=== PATIENT | male | born 1990 | race Caucasian/White ===

== ENCOUNTER 2020-03-22 19:15 | Emergency (ER) | payer OTHER, SELFPAY ==
[2020-03-22 19:25] VITALS: BP 124/79; PULSE 81; RESP 18; TEMP 36.4; O2SAT 99; BMI 29.1
--- NOTE | 2020-03-22 20:42 | W.ED.COVID ---
HPI - COVID General: Chief Complaint: COVID symptoms Stated Complaint: cant taste/cough Time Seen by Provider: 03/22/20 20:38 Source: patient Mode of arrival: ambulatory Limitations: no limitations Triage information: No fever, cough or shortness of breath. No known COVID + exposure last 14 days History of Present Illness: HPI Narrative: Mr. Nuno is a nice 29-year-old male who comes in stating he has cough, sore throat and loss of sense of smell. Symptoms been present for the past 2 days. He has had a subjective fever but has not measured his temperature. He denies any nausea, vomiting or diarrhea. Patient states he has had a known covert exposure. He otherwise denies any complaints or concerns. He is unaware of anything that makes his symptoms better or worse. COVID 19 common symptoms: positive fever(s), non-productive cough and throat pain; negative chills, productive cough, dyspnea, fatigue, body aches, headache(s), nausea, vomiting or diarrhea COVID 19 other sytmptoms: negative chest pain or confusion COVID Results: No Data to Display Review of Systems Const: Reports: fever(s); Denies: chills, body aches, fatigue, malaise or diaphoresis Eyes: Denies: change in vision, blurry vision, photophobia, eye discomfort, eye discharge, eye redness or yellow eyes ENMT: Reports: throat pain; Denies: odynophagia, hoarseness, swelling of lips/tongue, ear or mastoid pain, ear discharge, change in hearing or nasal discharge Card: Denies: chest pain, palpitations, irregular heart rhythm, edema, lightheadedness, syncope, pre-syncope, dyspnea on exertion or orthopnea Resp: Reports: non-productive cough; Denies: dyspnea, productive cough, wheezing, hemoptysis or chest congestion GI: Denies: abdominal pain, nausea, vomiting, hematemesis, coffee ground emesis, heartburn, diarrhea, constipation, GI cramping, hematochezia or melena : Denies: flank pain, dysuria, urinary frequency, urinary urgency or hematuria Musc: Denies: neck pain, back pain, extremity pain, extremity swelling, joint pain, joint swelling, joint redness, joint warmth or joint stiffness Skin/Breast: Denies: rash, pruritus, erythema, skin pain or skin tenderness Neuro: Denies: headache(s), numbness in extremities, weakness in extremities, sensory changes, lack of coordination, difficulty walking, dizziness, vertigo, confusion, Slurred speech present or seizure-like activity Gabino/Lymph: Denies: easy bruising, easy bleeding, petechiae, purpura or enlarged lymph nodes All/Imm: Denies: urticaria, throat swelling, tongue swelling, facial swelling or acute wheezing Physical Exam Const: COMMON NORMALS: no acute distress, patient oriented x3, no limitations and alert GENERAL APPEARANCE: cooperative HENMT: COMMON NORMALS: normocephalic, atraumatic, external ears normal, EAC's normal and Normal external nose present HEAD & SCALP: normal to inspection, normocephalic and atraumatic FACE & SINUS: normal facial exam and face symmetric NOSE: Normal external nose present and Normal nares present EXTERNAL EAR: Yes external ears normal EXTERNAL AUDITORY CANAL: EAC's normal MOUTH: Normal oral and palatal mucosa present, lip normal and tongue normal Eye: COMMON NORMALS: Equal, round and reactive pupils present and conjunctivae normal GENERAL EYE: appearance normal, both eyes and all related structures ALIGNMENT: Yes alignment normal PERIORBITAL: periorbital findings normal EYELID: eyelids normal CONJUNCTIVA: Yes conjunctivae normal SCLERA: sclerae normal PUPIL: Yes Equal, round and reactive pupils present Neck/C-Spine: COMMON NORMALS: full ROM, no lymphadenopathy, supple, no meningeal signs and no JVD GENERAL: Yes normal visual inspection and Yes trachea midline Chest: COMMONS NORMALS: normal inspection of the chest and normal palpation of entire chest wall Resp: COMMON NORMALS: normal respiratory effort, No retractions, No use of accessory muscles and clear to auscultation bilaterally EFFORT & INSPECTION: Yes able to speak in complete sentences and Yes symmetric chest movement AUSCULTATION: clear to auscultation bilaterally, no crackles, no rales, no rhonchi and no wheezes Cardio: COMMON NORMALS: no JVD, regular rate, regular rhythm, S1 normal heart sound present and S2 normal heart sound present RATE: regular rate RHYTHM: regular rhythm HEART SOUNDS: S1 normal heart sound present, S2 normal heart sound present, no click, no gallops, no murmurs and no rubs GI: COMMON NORMALS: Soft to palpation and No hepatosplenomegaly present PALPATION: Yes Soft to palpation, No Tenderness to palpation present (GI), No Guarding due to palpation present (GI), No Rigid due to palpation, Yes No hepatosplenomegaly present, No Hernia present, No Palpable mass present and No Pulsatile mass present : COMMON NORMALS: Yes no CVA tenderness BLADDER/KIDNEY EXAM: Yes no CVA tenderness Back/Pelvis: COMMON NORMALS: no CVA tenderness, thoracic and lumbar spine normal to inspection, no thoracic nor lumbar tenderness and thoraco-lumbar ROM normal Extremity: COMMON NORMALS: normal to inspection, full ROM, capillary refill normal, no joint enlargement, no clubbing, cyanosis or edema and no calf tenderness Neuro: COMMON NORMALS: patient oriented x3, CN's II-XII intact bilaterally, moves all extremities, no focal motor deficits and no sensory deficits noted SENSORIUM/ORIENTATION: Yes alert MENINGEAL SIGNS: Yes no meningeal signs SPEECH: speech normal Psych: COMMON NORMALS: mental status grossly normal, Normal thought process present, cooperative, normal affect, speech normal and activity/motor behavior normal SPEECH: Yes normal speech THOUGHT PROCESS: Normal thought process present Skin: COMMON NORMALS: no rashes or lesions noted, turgor normal, no jaundice, no petechiae and no mottling GENERAL SKIN EXAM: no rashes or lesions noted and turgor normal Course Vital Signs: Vital signs: Vital Signs Temperature 97.6 F 03/22/20 19:25 Pulse Rate 86 03/22/20 20:57 Respiratory Rate 16 03/22/20 20:57 Blood Pressure 124/79 03/22/20 19:25 Pulse Oximetry 96 03/22/20 20:57 MDM - COVID MDM Narrative Medical decision making narrative: Mr. Nuno is a very nice 29-year-old male who comes in complaining of upper respiratory/COVID-19 type symptoms. Clinically he is stable here with stable vital signs. He is not hypoxic. He does not appear septic. I am going to go ahead and swab the patient and he understands he will need to quarantine himself these results will likely come back in the next 2 to 4 days. He states he can keep himself quarantined until then. At that time he will get further instructions. Lab Data COVID Results: No Data to Display Discharge Plan Discharge Patient Disposition: Home Clinical Impression: Suspected COVID-19 virus infection Upper respiratory infection Qualifiers: URI type: unspecified URI Qualified Code(s): J06.9 - Acute upper respiratory infection, unspecified Condition: Stable Prescriptions: New Decadron 6 mg tablet 6 mg PO DAILY Qty: 10 RF: 0 Tessalon Perles 100 mg capsule 200 mg PO TID PRN (Reason: cough) Qty: 60 RF: 0 Discharge Orders: Discharge Order (Routine); Ordered 03/22/20 Ordered By: Brianda Coker Referrals: Sami Larson MD [Physician] - Discharge Diet: Advance as tolerated Discharge Activity: Increase activity as tolerated Patient Instructions: Viral Syndrome (ED) Activity Restrictions/Additional Instructions: Please return to the ER immediately for any of the signs or symptoms listed on your discharge instruction sheets, worsening/changing of your symptoms, you are not getting better as quickly as expected, or for ANY other cause or concerns. Keep yourself at home, quarantined and away from others until you were contacted with results of your test. At that time you will be given further instructions. Discharge Date/Time: 03/22/20 20:58 Coding Level of Care Code ED Agricultural Equipment Test Engineer for Donna Davis
[2020-03-22] MEDS: dexamethasone 4 mg Tablet 10 MG PO (20:50)
[2020-03-22 20:56] VITALS: O2SAT 96
[2020-03-22 20:57] VITALS: PULSE 86; RESP 16; O2SAT 96
[2020-03-24 10:59] LABS: Quest SARS-CoV-2 RNA NOT DETECTED (NOT DETECTED)
--- NOTE | 2020-03-24 16:12 | PC.NURSE ---
Patient notified of COVID-19 results at this time
== END 2020-03-22 20:58 | disposition home or self-care (01) ==
PROVIDERS: Emergency Provider Emergency Medicine
DX: J06.9 Acute upper respiratory infection, unspecified (principal); Z20.828 Contact with and (suspected) exposure to other viral communicable diseases
CPT/HCPCS: 12345; 87635; 99283; J8540

== ENCOUNTER 2020-04-30 14:22 | Emergency (ER) | payer SELFPAY ==
[2020-04-30 14:26] VITALS: BP 124/75; PULSE 73; RESP 18; TEMP 36.9; O2SAT 98; BMI 28.3
--- NOTE | 2020-04-30 14:35 | XR_ITS ---
WS: [id number] CHEST 2 VIEWS HISTORY: RIGHT lower rib pain. COMPARISON: None available. Lungs: Clear with no abnormality. No pleural effusion or pneumothorax. Cardiac size: Normal. Mediastinum/Aorta: Normal mediastinum. Bones: Normal. XR/XR chest 2V* [id number] IMPRESSION: Normal chest.
--- NOTE | 2020-04-30 14:50 | W.ED.CHESTPA ---
HPI - Chest Pain General: Chief Complaint: Chest Pain Stated Complaint: chest/right ABD pain Time Seen by Provider: 04/30/20 14:38 Source: patient Mode of arrival: ambulatory Limitations: no limitations History of Present Illness: HPI narrative: 29-year-old male states he was binging roughly 160 pounds yesterday and dropped a weight on himself. States he had right-sided chest pain since then. States pain is a sharp in nature and worse with deep breaths and palpation. He denies any shortness of breath. Denies any fever. He is in no distress here. Associated symptoms: Deny abdominal pain, dyspnea, fever(s), nausea or vomiting Review of Systems Const: Denies: fever(s), chills, body aches or change in appetite Eyes: Denies: blurry vision or eye discomfort ENMT: Denies: throat pain or dental pain Card: Reports: chest pain Resp: Denies: dyspnea GI: Denies: abdominal pain, nausea, vomiting or diarrhea : Denies: dysuria Musc: Denies: neck pain or back pain Skin/Breast: Denies: rash Neuro: Denies: headache(s) Psych: Denies: depression Gabino/Lymph: Denies: easy bruising All/Imm: Denies: urticaria Physical Exam Const: COMMON NORMALS: no acute distress, patient oriented x3 and healthy appearing HENMT: COMMON NORMALS: normocephalic and atraumatic HEAD & SCALP: normocephalic and atraumatic Eye: COMMON NORMALS: Equal, round and reactive pupils present and EOMs intact bilaterally PUPIL: Yes Equal, round and reactive pupils present Neck/C-Spine: COMMON NORMALS: full ROM and supple Chest: COMMONS NORMALS: normal inspection of the chest OTHER: Point tender over right chest Resp: COMMON NORMALS: normal respiratory effort, No retractions, No use of accessory muscles and clear to auscultation bilaterally AUSCULTATION: clear to auscultation bilaterally Cardio: COMMON NORMALS: regular rate, regular rhythm and No murmurs present (Cardio) RATE: regular rate RHYTHM: regular rhythm GI: COMMON NORMALS: Normal to inspection, nondistended, normoactive bowel sounds present, Soft to palpation, non-tender and no masses PALPATION: Yes Soft to palpation Extremity: COMMON NORMALS: normal to inspection and full ROM Neuro: COMMON NORMALS: patient oriented x3, moves all extremities and no focal motor deficits Psych: COMMON NORMALS: mental status grossly normal, Normal thought process present and cooperative THOUGHT PROCESS: Normal thought process present Skin: COMMON NORMALS: no rashes or lesions noted and no wounds GENERAL SKIN EXAM: no rashes or lesions noted Course Vital Signs: Vital signs: Vital Signs Temperature 98.5 F 04/30/20 14:26 Pulse Rate 73 04/30/20 14:26 Respiratory Rate 18 04/30/20 14:26 Blood Pressure 124/75 04/30/20 14:26 Pulse Oximetry 98 04/30/20 14:26 MDM - Chest Pain MDM Narrative: Medical decision making narrative: Patient presents here with chest wall pain from an injury. His x-ray here is normal. He is stable for discharge and is to follow-up PCP and return if worsening. He understands and agrees to plan. Imaging Data^: CXR: Attestation: I personally reviewed and interpreted this imaging study as follows: My impression: No acute abnormality EKG Data^: EKG 1: Attestation: I personally reviewed and interpreted this EKG as follows: EKG interpretation date: 04/30/20 Interpretation: nsr hr [address] or t wave abnormalities qrs 89 qtc 381 Discharge Plan Discharge Patient Disposition: Home Clinical Impression: Chest wall pain Condition: Stable Prescriptions: New Naprosyn 500 mg tablet 500 mg PO BID PRN (Reason: pain) Qty: 20 RF: 0 No Action Decadron 6 mg tablet 6 mg PO DAILY Qty: 10 RF: 0 Tessalon Perles 100 mg capsule 200 mg PO TID PRN (Reason: cough) Qty: 60 RF: 0 Discharge Orders: Discharge Order (Routine); Ordered 04/30/20 Ordered By: Diana Chambers Referrals: [facility], [Primary Care Provider] - Discharge Diet: Advance as tolerated Discharge Activity: Resume usual activity Patient Instructions: Chest Pain - Chest Wall, Costochondritis (ED) Coding Level of Care Code ED Chiropractic Practice Manager for Donna Davis
--- NOTE | 2020-04-30 15:00 | ECG_ITS ---
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
== END 2020-04-30 15:00 | disposition home or self-care (01) ==
PROVIDERS: Emergency Provider Emergency Medicine
DX: R07.89 Other chest pain (principal)
CPT/HCPCS: 12345; 71046; 93005; 99281; 99282

== ENCOUNTER 2020-07-05 15:50 | Emergency (ER) | payer SELFPAY ==
--- NOTE | 2020-07-05 16:00 | PC.NURSE ---
Went to get pt for EKG and pt was across the street smoking a cigarette.
[2020-07-05 16:41] VITALS: BP 129/70; PULSE 82; RESP 18; TEMP 37.1; O2SAT 96; BMI 30.9
--- NOTE | 2020-07-05 16:45 | XRR_ITS ---
PROCEDURE INFORMATION: Exam: XR Chest, 1 View Exam date and time: 07/05/2020 4:48 PM Age: 30 years old Clinical indication: Other: Syncope TECHNIQUE: Imaging protocol: XR of the chest Views: 1 view. COMPARISON: CR XR chest 2V* [id number] 04/30/2020 2:39 PM FINDINGS: Lungs: Unremarkable. No consolidation. Pleural spaces: Unremarkable. No pleural effusion. No pneumothorax. Heart/Mediastinum: Unremarkable. No cardiomegaly. Bones/joints: Unremarkable. XR/XR chest 1V portable [id number] IMPRESSION: No acute findings.
--- NOTE | 2020-07-05 17:57 | ED_ITS ---
Documented by User: Aleksandr Bhavin Ronald, 07/05/20 23:51 HPI - Syncope General: Chief Complaint: Syncope Stated Complaint: syncopal episode Time Seen by Provider: 07/05/20 17:56 History of Present Illness: HPI narrative: 30-year-old male who is been in a rehab facility for the last couple of months. He is essentially healthy. He did have COVID-19 back in March. He has never had a syncopal episode before. He presents after syncopal episode of short, but unknown otherwise duration this afternoon. He had a headache somewhat beforehand, but worse afterward. He notes that he does not get headaches often. His headache is decreased to a mild headache now. He is otherwise asymptomatic, and has been up and around in the ER while he has been waiting. Associated symptoms: Reports headache(s); Deny abdominal pain, chest pain, fever(s), nausea or vertigo Review of Systems Const: Denies: fever(s) or chills Eyes: Denies: change in vision or blurry vision ENMT: Denies: odynophagia, swelling of lips/tongue or sinus pain Card: Denies: chest pain, palpitations, irregular heart rhythm or edema Resp: Denies: dyspnea, productive cough, non-productive cough or wheezing GI: Denies: abdominal pain, nausea or vomiting : Denies: difficulty urinating or hematuria Musc: Denies: neck pain or back pain Skin/Breast: Denies: rash or erythema Neuro: Reports: headache(s); Denies: dizziness, vertigo, confusion or seizure-like activity Psych: Denies: anxiety, visual hallucinations or auditory hallucinations PFS ED PFSH: Social History (Updated 06/19/20 @ 14:04 by Edd Manuel LPN) Smoking and tobacco status: current every day smoker cigarettes Packs smoked per day: 0.25 Years cigarettes smoked: 16 Quit status (tobacco): has tried quititng Number of times tried to quit tobacco: 3 Second hand smoke exposure: Yes Current gender identity: Male Physical Exam Const: GENERAL APPEARANCE: well developed ORIENTATION/CONSCIOUSNESS: Yes oriented to person, Yes oriented to place and Yes oriented to time HENMT: COMMON NORMALS: normocephalic, external ears normal and Normal external nose present HEAD & SCALP: normocephalic; no scalp tenderness FACE & SINUS: normal facial exam NOSE: Normal external nose present and No nasal discharge present EXTERNAL EAR: Yes external ears normal MOUTH: tongue normal TEETH & GINGIVA: no abnormal tooth and associated gingiva THROAT: posterior oropharynx normal; no peritonsillar mass Eye: COMMON NORMALS: Equal, round and reactive pupils present, EOMs intact bilaterally and conjunctivae normal EYELID: eyelids normal CONJUNCTIVA: Yes conjunctivae normal PUPIL: Yes Equal, round and reactive pupils present Neck/C-Spine: COMMON NORMALS: full ROM GENERAL: No tracheal deviation CERVICAL SPINE: Yes normal cervical lordosis and No Cervical spine tenderness Chest: COMMONS NORMALS: normal inspection of the chest CHEST: No tenderness Resp: COMMON NORMALS: clear to auscultation bilaterally EFFORT & INSPECTION: No tachypneic, No respiratory distress, No retractions, No uses accessory muscles and No tracheal deviation AUSCULTATION: clear to auscultation bilaterally, no rhonchi, no wheezes and lung sounds not diminished Cardio: COMMON NORMALS: regular rate and regular rhythm RATE: regular rate RHYTHM: regular rhythm HEART SOUNDS: no murmurs PERIPHERAL PULSES: radial pulses present GI: INSPECTION: No abdominal distension AUSCULTATION: No Hyperactive bowel sounds present and No Hypoactive bowel sounds present PALPATION: No Guarding due to palpation present (GI) and No Rigid due to palpation PERCUSSION: no dullness to percussion and no tympanic to percussion Neuro: SENSORIUM/ORIENTATION: Yes oriented to person, Yes oriented to place and Yes oriented to time Psych: COMMON NORMALS: mental status grossly normal Skin: COMMON NORMALS: no rashes or lesions noted GENERAL SKIN EXAM: no rashes or lesions noted Course Vital Signs: Vital signs: Vital Signs Temperature 98.7 F 07/05/20 16:41 Pulse Rate 78 07/05/20 20:11 Respiratory Rate 14 07/05/20 20:11 Blood Pressure 144/83 07/05/20 20:11 Pulse Oximetry 100 07/05/20 20:11 MDM - Syncope MDM Narrative: Medical decision making narrative: Sinus headache, patient asymptomatic. Chest x-ray and CT of the head are negative. Labs are normal. He is feeling a bit better. He is given Toradol for headache, and will be allowed home Lab Data: Labs: Lab Results 07/05/20 07/05/20 07/05/20 Range/Units 18:45 18:45 18:45 WBC 9.9 (4.0-10.0) 10^3/ uL RBC 4.58 (4.1-5.3) 10^6/u L Hgb 14.2 (11.7-16.6) g/dL Hct 41.8 L (42.0-52.0) % MCV 91.3 (80-94) fL MCH 31.0 (28.0-34.0) pg MCHC 34.0 (30.0-36.0) g/dL RDW 12.0 L (12.1-15.1) % Plt Count 298 (130-400) 10^3/c mm MPV 10.1 (7.4-10.4) fL Neut % (Auto) 57.8 % Lymph % (Auto) 29.6 % [place] % (Auto) 8.8 % Eos % (Auto) 3.2 % Baso % (Auto) 0.5 % Neut # (Auto) 5.73 (1.8-7.7) 10^3/u L Lymph # (Auto) 2.9 (0.8-4.8) 10^3/u L [place] # (Auto) 0.9 (0.2-0.9) 10^3/u L Eos # (Auto) 0.3 (0.0-0.8) 10^3/u L Baso # (Auto) 0.1 (0.0-0.1) 10^3/u L Nucleated RBC % (a uto) 0 % Nucleated RBCs # 0.0 /100WBC Sodium 138 (136-145) mmol/L Potassium 4.6 (3.5-5.1) mmol/L Chloride 101 (98-107) mmol/L Carbon Dioxide 26 (22-29) mmol/L Anion Gap 15.6 (5-19) BUN 19 (6-20) mg/dL Creatinine 0.9 (0.7-1.2) mg/dL GFR Calculation 100.5 (90-130) mL/min Glucose 91 (65-115) mg/dL Calculated Osmolal ity 288 (285-295) mOsm/k g Calcium 9.4 (8.5-10.5) mg/dL Total Bilirubin 0.3 (0.15-1.2) mg/dL AST 54 H (0-40) U/L ALT 128 H (0-41) U/L Alkaline Phosphata se 68 (40-130) IU/L Troponin T Baselin e 6 (0-15) ng/L Total Protein 6.9 (6.6-8.7) g/dL Albumin 4.3 (3.5-5.2) g/dL Globulin 2.6 (1.3-4.6) g/dL Urine Opiates Scre en (Negative) ng/mL Ur Barbiturates Sc reen (Negative) ng/mL Ur Phencyclidine S crn (Negative) ng/mL Ur Amphetamines Sc reen (Negative) ng/mL U Benzodiazepines Scrn (Negative) ng/mL Urine Cocaine Scre en (Negative) ng/mL U Marijuana (THC) Screen (Negative) ng/mL 07/05/20 Range/Units 19:26 WBC (4.0-10.0) 10^3/ uL RBC (4.1-5.3) 10^6/u L Hgb (11.7-16.6) g/dL Hct (42.0-52.0) % MCV (80-94) fL MCH (28.0-34.0) pg MCHC (30.0-36.0) g/dL RDW (12.1-15.1) % Plt Count (130-400) 10^3/c mm MPV (7.4-10.4) fL Neut % (Auto) % Lymph % (Auto) % [place] % (Auto) % Eos % (Auto) % Baso % (Auto) % Neut # (Auto) (1.8-7.7) 10^3/u L Lymph # (Auto) (0.8-4.8) 10^3/u L [place] # (Auto) (0.2-0.9) 10^3/u L Eos # (Auto) (0.0-0.8) 10^3/u L Baso # (Auto) (0.0-0.1) 10^3/u L Nucleated RBC % (a uto) % Nucleated RBCs # /100WBC Sodium (136-145) mmol/L Potassium (3.5-5.1) mmol/L Chloride (98-107) mmol/L Carbon Dioxide (22-29) mmol/L Anion Gap (5-19) BUN (6-20) mg/dL Creatinine (0.7-1.2) mg/dL GFR Calculation (90-130) mL/min Glucose (65-115) mg/dL Calculated Osmolal ity (285-295) mOsm/k g Calcium (8.5-10.5) mg/dL Total Bilirubin (0.15-1.2) mg/dL AST (0-40) U/L ALT (0-41) U/L Alkaline Phosphata se (40-130) IU/L Troponin T Baselin e (0-15) ng/L Total Protein (6.6-8.7) g/dL Albumin (3.5-5.2) g/dL Globulin (1.3-4.6) g/dL Urine Opiates Scre en Negative (Negative) ng/mL Ur Barbiturates Sc reen Negative (Negative) ng/mL Ur Phencyclidine S crn Negative (Negative) ng/mL Ur Amphetamines Sc reen Negative (Negative) ng/mL U Benzodiazepines Scrn Negative (Negative) ng/mL Urine Cocaine Scre en Negative (Negative) ng/mL U Marijuana (THC) Screen Negative (Negative) ng/mL Discharge Plan Discharge Patient Disposition: Home Clinical Impression: Syncope Qualifiers: Encounter type: initial encounter Condition: Stable Prescriptions: No Action buprenorphine-naloxone 2-0.5 mg tablet, sublingual 0.5 tab sublingual BID RF: 0 fluoxetine [Prozac] 20 mg capsule 20 mg PO DAILY Qty: 30 RF: 1 Decadron 6 mg tablet 6 mg PO DAILY Qty: 10 RF: 0 Tessalon Perles 100 mg capsule 200 mg PO TID PRN (Reason: cough) Qty: 60 RF: 0 Naprosyn 500 mg tablet 500 mg PO BID PRN (Reason: pain) Qty: 20 RF: 0 Discharge Orders: Discharge ED (Routine); Ordered 07/05/20 Ordered By: Aleksandr Cardenas Discharge Diet: Advance as tolerated Discharge Activity: Increase activity as tolerated Patient Instructions: Syncope (ED) Activity Restrictions/Additional Instructions: Return for chest discomfort, shortness of breath, fever, repeated episodes of syncope or passing out, any seizure-like activity, other concerning symptoms. Coding Level of Care Code ED Chainstitch Pants Outseamer for Chg Fwd Exam Comprehensive Documented by User: Rome James DO 07/06/20 06:18 HPI - Syncope General: Chief Complaint: Syncope Stated Complaint: syncopal episode Time Seen by Provider: 07/05/20 17:56 PFSH ED PFSH: Social History (Updated 06/19/20 @ 14:04 by Edd Manuel LPN) Smoking and tobacco status: current every day smoker cigarettes Packs smoked per day: 0.25 Years cigarettes smoked: 16 Quit status (tobacco): has tried quititng Number of times tried to quit tobacco: 3 Second hand smoke exposure: Yes Current gender identity: Male Course Vital Signs: Vital signs: Vital Signs Temperature 98.7 F 07/05/20 16:41 Pulse Rate 78 07/05/20 20:11 Respiratory Rate 14 07/05/20 20:11 Blood Pressure 144/83 07/05/20 20:11 Pulse Oximetry 100 07/05/20 20:11 MDM - Syncope MDM Narrative: Medical decision making narrative: The end of the shift patient was on the tracker board is being brought to one of my exam room side signed up to initiate care however they had difficulty finding him in the waiting room never did see the patient. Eventually when they found him he was brought to room and seen by Dr. Cardenas I did not participate in his care please see Dr. Cardenas's notes for full discourse of his care. Lab Data: Labs: Lab Results 07/05/20 07/05/20 07/05/20 Range/Units 18:45 18:45 18:45 WBC 9.9 (4.0-10.0) 10^3/ uL RBC 4.58 (4.1-5.3) 10^6/u L Hgb 14.2 (11.7-16.6) g/dL Hct 41.8 L (42.0-52.0) % MCV 91.3 (80-94) fL MCH 31.0 (28.0-34.0) pg MCHC 34.0 (30.0-36.0) g/dL RDW 12.0 L (12.1-15.1) % Plt Count 298 (130-400) 10^3/c mm MPV 10.1 (7.4-10.4) fL Neut % (Auto) 57.8 % Lymph % (Auto) 29.6 % [place] % (Auto) 8.8 % Eos % (Auto) 3.2 % Baso % (Auto) 0.5 % Neut # (Auto) 5.73 (1.8-7.7) 10^3/u L Lymph # (Auto) 2.9 (0.8-4.8) 10^3/u L [place] # (Auto) 0.9 (0.2-0.9) 10^3/u L Eos # (Auto) 0.3 (0.0-0.8) 10^3/u L Baso # (Auto) 0.1 (0.0-0.1) 10^3/u L Nucleated RBC % (a uto) 0 % Nucleated RBCs # 0.0 /100WBC Sodium 138 (136-145) mmol/L Potassium 4.6 (3.5-5.1) mmol/L Chloride 101 (98-107) mmol/L Carbon Dioxide 26 (22-29) mmol/L Anion Gap 15.6 (5-19) BUN 19 (6-20) mg/dL Creatinine 0.9 (0.7-1.2) mg/dL GFR Calculation 100.5 (90-130) mL/min Glucose 91 (65-115) mg/dL Calculated Osmolal ity 288 (285-295) mOsm/k g Calcium 9.4 (8.5-10.5) mg/dL Total Bilirubin 0.3 (0.15-1.2) mg/dL AST 54 H (0-40) U/L ALT 128 H (0-41) U/L Alkaline Phosphata se 68 (40-130) IU/L Troponin T Baselin e 6 (0-15) ng/L Total Protein 6.9 (6.6-8.7) g/dL Albumin 4.3 (3.5-5.2) g/dL Globulin 2.6 (1.3-4.6) g/dL Urine Opiates Scre en (Negative) ng/mL Ur Barbiturates Sc reen (Negative) ng/mL Ur Phencyclidine S crn (Negative) ng/mL Ur Amphetamines Sc reen (Negative) ng/mL U Benzodiazepines Scrn (Negative) ng/mL Urine Cocaine Scre en (Negative) ng/mL U Marijuana (THC) Screen (Negative) ng/mL 07/05/20 Range/Units 19:26 WBC (4.0-10.0) 10^3/ uL RBC (4.1-5.3) 10^6/u L Hgb (11.7-16.6) g/dL Hct (42.0-52.0) % MCV (80-94) fL MCH (28.0-34.0) pg MCHC (30.0-36.0) g/dL RDW (12.1-15.1) % Plt Count (130-400) 10^3/c mm MPV (7.4-10.4) fL Neut % (Auto) % Lymph % (Auto) % [place] % (Auto) % Eos % (Auto) % Baso % (Auto) % Neut # (Auto) (1.8-7.7) 10^3/u L Lymph # (Auto) (0.8-4.8) 10^3/u L [place] # (Auto) (0.2-0.9) 10^3/u L Eos # (Auto) (0.0-0.8) 10^3/u L Baso # (Auto) (0.0-0.1) 10^3/u L Nucleated RBC % (a uto) % Nucleated RBCs # /100WBC Sodium (136-145) mmol/L Potassium (3.5-5.1) mmol/L Chloride (98-107) mmol/L Carbon Dioxide (22-29) mmol/L Anion Gap (5-19) BUN (6-20) mg/dL Creatinine (0.7-1.2) mg/dL GFR Calculation (90-130) mL/min Glucose (65-115) mg/dL Calculated Osmolal ity (285-295) mOsm/k g Calcium (8.5-10.5) mg/dL Total Bilirubin (0.15-1.2) mg/dL AST (0-40) U/L ALT (0-41) U/L Alkaline Phosphata se (40-130) IU/L Troponin T Baselin e (0-15) ng/L Total Protein (6.6-8.7) g/dL Albumin (3.5-5.2) g/dL Globulin (1.3-4.6) g/dL Urine Opiates Scre en Negative (Negative) ng/mL Ur Barbiturates Sc reen Negative (Negative) ng/mL Ur Phencyclidine S crn Negative (Negative) ng/mL Ur Amphetamines Sc reen Negative (Negative) ng/mL U Benzodiazepines Scrn Negative (Negative) ng/mL Urine Cocaine Scre en Negative (Negative) ng/mL U Marijuana (THC) Screen Negative (Negative) ng/mL Discharge Plan Discharge Patient Disposition: Home Clinical Impression: Syncope Qualifiers: Encounter type: initial encounter Condition: Stable Prescriptions: No Action buprenorphine-naloxone 2-0.5 mg tablet, sublingual 0.5 tab sublingual BID RF: 0 fluoxetine [Prozac] 20 mg capsule 20 mg PO DAILY Qty: 30 RF: 1 Decadron 6 mg tablet 6 mg PO DAILY Qty: 10 RF: 0 Tessalon Perles 100 mg capsule 200 mg PO TID PRN (Reason: cough) Qty: 60 RF: 0 Naprosyn 500 mg tablet 500 mg PO BID PRN (Reason: pain) Qty: 20 RF: 0 Discharge Orders: Discharge ED (Routine); Ordered 07/05/20 Ordered By: Aleksandr Cardenas Discharge Diet: Advance as tolerated Discharge Activity: Increase activity as tolerated Patient Instructions: Syncope (ED) Activity Restrictions/Additional Instructions: Return for chest discomfort, shortness of breath, fever, repeated episodes of syncope or passing out, any seizure-like activity, other concerning symptoms. Coding Level of Care Code ED Chainstitch Pants Outseamer for Donna Fwd Exam Comprehensive
--- NOTE | 2020-07-05 17:58 | PC.NURSE ---
Called for pt at [phone], pt not in WR.
[2020-07-05 18:17] VITALS: BP 123/78; BP 135/80; BP 148/82; PULSE 71; PULSE 72; PULSE 78
[2020-07-05 18:47] VITALS: BP 148/82; PULSE 68; RESP 18; O2SAT 97
[2020-07-05 18:54] LABS: Basophils # 0.1 10^3/uL (0.0-0.1); Basophils % 0.5 %; Eosinophils # 0.3 10^3/uL (0.0-0.8); Eosinophils % 3.2 %; Hematocrit 41.8 % (42.0-52.0); Hemoglobin 14.2 g/dL (11.7-16.6); Lymphocytes # 2.9 10^3/uL (0.8-4.8); Lymphocytes % 29.6 %; Mean Corpuscular Volume 91.3 fL (80-94); Mean Platelet Volume 10.1 fL (7.4-10.4); Monocytes # 0.9 10^3/uL (0.2-0.9); Monocytes % 8.8 %; Neutrophils # 5.73 10^3/uL (1.8-7.7); Neutrophils % 57.8 %; Nucleated Red Blood Cells % 0 %; Platelet Count 298 10^3/cmm (130-400); Red Blood Count 4.58 10^6/uL (4.1-5.3); White Blood Count 9.9 10^3/uL (4.0-10.0)
[2020-07-05 19:00] VITALS: BP 140/73; PULSE 70; RESP 16; O2SAT 96
[2020-07-05] MEDS: sodium chloride 0.9% 1,000 ML 999 ML IV (19:00)
--- NOTE | 2020-07-05 19:00 | CTR_ITS ---
PROCEDURE INFORMATION: Exam: CT Head Without Contrast Exam date and time: 07/05/2020 7:03 PM Age: 30 years old Clinical indication: Syncope and collapse; Patient HX: C/O ROBBINS after syncope and fall TECHNIQUE: Imaging protocol: Computed tomography of the head without contrast. Radiation optimization: All CT scans at this facility use at least one of these dose optimization techniques: automated exposure control; mA and/or kV adjustment per patient size (includes targeted exams where dose is matched to clinical indication); or iterative reconstruction. COMPARISON: No relevant prior studies available. RADIATION DOSE METRICS: Total DLP (mGy-cm): 781.02 FINDINGS: Brain: Normal. No hemorrhage. Unremarkable white matter. No mass effect. Cerebral ventricles: No ventriculomegaly. Bones/joints: Unremarkable. No acute fracture. Paranasal sinuses: Visualized sinuses are unremarkable. No fluid levels. Mastoid air cells: Visualized mastoid air cells are well aerated. Soft tissues: Unremarkable. CT/CT head wo con* [id number] IMPRESSION: No acute intracranial abnormality. Radiation Dose CTDIVOL = (mGy): DLP = 781.02 (mGy-cm)
[2020-07-05 19:12] LABS: Alanine Aminotransferase 128 U/L (0-41); Albumin Level 4.3 g/dL (3.5-5.2); Alkaline Phosphatase 68 IU/L (40-130); Anion Gap 15.6 (5-19); Aspartate Amino Transferase 54 U/L (0-40); Blood Urea Nitrogen 19 mg/dL (6-20); Calcium 9.4 mg/dL (8.5-10.5); Carbon Dioxide 26 mmol/L (22-29); Chloride 101 mmol/L (98-107); Globulin 2.6 g/dL (1.3-4.6); Glomerular Filtration Rate 100.5 mL/min (90-130); Glucose 91 mg/dL (65-115); Osmolality Calculated 288 mOsm/kg (285-295); Potassium 4.6 mmol/L (3.5-5.1); Sodium 138 mmol/L (136-145); Total Bilirubin 0.3 mg/dL (0.15-1.2); Total Protein 6.9 g/dL (6.6-8.7)
[2020-07-05 19:14] LABS: Troponin(5th) Baseline 6 ng/L (0-15)
[2020-07-05 19:30] VITALS: BP 141/80; PULSE 76; RESP 16; O2SAT 99
[2020-07-05 19:46] LABS: Amphetamines Screen Urine Negative (Negative); Barbiturates Screen Urine Negative (Negative); Benzodiazepines Screen Urine Negative (Negative); Cocaine Screen Urine Negative (Negative); Opiate Screen Urine Negative (Negative); PCP Screen Urine Negative (Negative); THC Screen Urine Negative (Negative)
[2020-07-05] MEDS: ketorolac 30 mg/mL INJ IVP (19:55)
[2020-07-05 20:11] VITALS: BP 144/83; PULSE 78; RESP 14; O2SAT 100
--- NOTE | 2020-07-05 22:45 | ECG_ITS ---
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 Measurements Intervals [place] Rate: 64 P: 51 CA: 156 QRS: 65 QRSD: 90 T: 35 QT: 365 QTc: 377 Interpretive Statements SINUS RHYTHM WARNING: DATA QUALITY MAY AFFECT INTERPRETATION Compared to ECG 04/30/2020 14:37:50 No significant changes Electronically Signed On 07-05-2020 22:19:45 CONTRACTING SPECIALIST by Addis Lind M.D. [id number]
== END 2020-07-05 20:10 | disposition home or self-care (01) ==
PROVIDERS: Physician Assistant; Emergency Provider Emergency Medicine
DX: R55 Syncope and collapse (principal); F17.210 Nicotine dependence, cigarettes, uncomplicated
CPT/HCPCS: 12345; 70450; 71045; 80053; 80306; 84484; 85025; 93005; 96361; 96374; 99283; J1885; J7030

== ENCOUNTER 2025-05-13 12:49 | Emergency (ER) | payer BC, SELFPAY ==
[2025-05-13 12:56] VITALS: BP 159/57; PULSE 78; RESP 16; TEMP 37; O2SAT 99; BMI 27.4
--- NOTE | 2025-05-13 12:58 | USR_ITS ---
PROCEDURE INFORMATION: Exam: US Scrotum Exam date and time: 05/13/2025 1:51 PM Age: 35 years old Clinical indication: Scrotum pain; Additional info: Testicular pain TECHNIQUE: Imaging protocol: Real-time ultrasound of the scrotum and contents with color Doppler and image documentation. COMPARISON: No relevant prior studies available. FINDINGS: Right testicle: Right testicle measures 3.6 x 2.1 x 2.4 cm with a volume of 9.45 mL. Homogeneous echotexture. No cyst or mass. Right testicular flow is seen. PSV 5.1 cm/sec with RI 0.72. Left testicle: Left testicle measures 3.5 x 2 x 2.6 cm with a volume of 9.4 mL. Homogeneous echotexture. No cyst or mass. Left testicular flow is seen. PSV 3.7 cm/sec. No RI given. Epididymides: Right epididymis measures 0.9 x 0.6 x 1.1 cm. Left epididymis measures 0.9 x 1 x 0.9 cm. Rounded hypoechoic to anechoic focus of 6 x 7 x 5 mm noted that could represent spermatocele or cyst. Scrotum/soft tissues: Mild bilateral hydroceles, measuring approximately 1.5 x 0.6 x 2.3 cm on the right and approximately 2.4 x 1.5 x 3 cm on the left. US/US scrotum [id number] IMPRESSION: 1. Bilateral testicular flow is seen. No findings to indicate torsion. No testicular mass. 2. 6 x 7 x 5 mm left spermatocele versus epididymal cyst. 3. Mild bilateral hydroceles.
--- NOTE | 2025-05-13 13:00 | ED_ITS ---
HPI - Male Genitourinary General: Chief complaint: Urogenital-Male Stated complaint: sent by walk in clinic Time Seen by Provider: 05/13/25 12:54 History of Present Illness: This is a healthy 35-year-old male who presents emergency room from urgent care with concern for testicular pain and swelling. This started last night. No dysuria. No known trauma. He does state he did have sex and this could have been something he with it. Related Data Home Medications ?Medication ?Instructions ?Recorded ?Confirmed buprenorphine 2 mg-naloxone 0.5 mg 0.5 tab sublingual BID 06/19/20 05/13/25 sublingual tablet Previous Rx's ?Medication ?Instructions ?Recorded naproxen 500 mg tablet (Naprosyn) 500 mg PO BID PRN pa in #20 tabs 04/30/20 Allergies Allergy/AdvReac Type Severity Reaction Status Date / Time No Known Allergies Allergy Verified 05/13/25 12:33 Review of Systems Narrative: Constitutional symptoms: Negative except as documented in HPI. Skin symptoms: Negative except as documented in HPI. Eye symptoms: Negative except as documented in HPI. ENMT symptoms: Negative except as documented in HPI. Respiratory symptoms: Negative except as documented in HPI. Cardiovascular symptoms: Negative except as documented in HPI. Gastrointestinal symptoms: Negative except as documented in HPI. Genitourinary symptoms: Negative except as documented in HPI. Musculoskeletal symptoms: Negative except as documented in HPI. Neurologic symptoms: Negative except as documented in HPI. Psychiatric symptoms: Negative except as documented in HPI. Endocrine symptoms: Negative except as documented in HPI. [facility] ED PFSH: Social History Smoking and tobacco/nicotine status: current every day tobacco/nicotine user cigarettes Packs smoked per day: 0.25 Years cigarettes smoked: 16 Quit status (tobacco/nicotine): has tried quititng Number of times tried to quit tobacco: 3 Second hand smoke exposure: Yes Current gender identity: Male Physical Exam Narrative: EXAM NARRATIVE: General: Alert, no acute distress. Skin: warm and dry Head: Normocephalic Neck: Trachea midline Eye: Extraocular movements are intact. Ears, nose, mouth and throat: Oral mucosa moist Respiratory: Respirations are non-labored Musculoskeletal: Normal ROM Gastrointestinal: Abdomen does not appear distended Neurological: Alert and oriented, No focal neurological deficit observed. Psychiatric: Cooperative, appropriate mood & affect. Course Vital Signs: Vital signs: Vital Signs Temperature 98.6 F 05/13/25 12:56 Pulse Rate 78 05/13/25 12:56 Respiratory Rate 16 05/13/25 12:56 Blood Pressure 159/57 05/13/25 12:56 Pulse Oximetry 99 05/13/25 12:56 Oxygen Delivery Me thod Room Air 05/13/25 12:56 MDM - Male Medical Decision Making Medical decision making Patient's reason for coming to the emergency room: Testicular pain Social determinants: Patient is employed I reviewed the patient's medical record. Was seen earlier today in urgent care and sent to the emergency room. I reviewed the patient's current home meds Patient takes no chronic medications. Alternate historians: None Differential diagnosis: including but not limited to and based on the above HPI, review of systems and physical exam: Would have concern for UTI, testicular torsion, testicular cancer etc. Ultrasound ordered to evaluate also urinalysis. Lab Review: Laboratory results were reviewed and interpreted by myself the emergency room physician. Urinalysis negative for infection or hematuria Ultrasound of the testicles shows bilateral flow. No torsion. No testicular mass. Small spermatocele and epididymal cyst. Mild bilateral hydroceles. This was reviewed and interpreted by myself the emergency room physician. I also reviewed the radiology report. Assessment of risk: Level of risk: Low risk patient Hospitalization considerations: No consideration of hospitalization Reexamination: Patient remained stable. No increased work of breathing. No altered mental status. No focal motor deficits. Assessment and plan: Testicular pain - Discharged home - Discussed plan with patient. Answered any questions. - Evaluation and treatment of this problem were appropriate in the emergency setting. Lab Data Radiology Impressions Scrotum Ultrasound 05/13/25 12:58 IMPRESSION: 1. Bilateral testicular flow is seen. No findings to indicate torsion. No testicular mass. 2. 6 x 7 x 5 mm left spermatocele versus epididymal cyst. 3. Mild bilateral hydroceles. Laboratory Results Urine Color Yellow (Yellow) 05/13/25 13:04 Urine Appearance Clear (CLEAR) 05/13/25 13:04 Urine pH 5.5 (5-7) 05/13/25 13:04 Ur Specific [place] 1.020 (1.005-1.030) 05/13/25 13:04 Urine Protein Negative (Negative) 05/13/25 13:04 Urine Glucose (UA) Negative (Normal) 05/13/25 13:04 Urine Ketones Negative (Negative) 05/13/25 13:04 Urine Blood Negative (Negative) 05/13/25 13:04 Urine Nitrate Negative (Negative) 05/13/25 13:04 Urine Bilirubin Negative (Negative) 05/13/25 13:04 Urine Urobilinogen 0.2 mg/dL (Negative) 05/13/25 13:04 Ur Leukocyte Esterase Negative (Negative) 05/13/25 13:04 Urine RBC 0-2 /hpf (0-2) 05/13/25 13:04 Urine WBC 0-5 /hpf (0-5) 05/13/25 13:04 Ur Squamous Epith Cells 0-5 /hpf (0-5) 05/13/25 13:04 Amorphous Sediment Not Reportable 05/13/25 13:04 Urine Bacteria None seen /hpf (NONE) 05/13/25 13:04 Hyaline Casts 0-4 /lpf H 05/13/25 13:04 All radiology interpretation(s) finalized by discharge Discharge Plan Discharge Patient Disposition: Home Clinical Impression: Pain in left testicle Condition: Stable Prescriptions: No Action buprenorphine-naloxone 2-0.5 mg tablet, sublingual 0.5 tab sublingual BID Naprosyn 500 mg tablet 500 mg PO BID PRN (Reason: pain) Qty: 20 0RF Discharge Orders: Discharge ED (Routine); Ordered 05/13/25 Ordered By: Nithya Adorno Discharge Diet: Usual diet Discharge Activity: Increase activity as tolerated Patient Instructions: Testicle Pain (ED), Opioid Safety, Pain Management, Patient Portal & Mateo Instructions Activity Restrictions/Additional Instructions: Thank you for choosing [facility] for your healthcare needs today. You have been screened and evaluated and felt safe for discharge. Health conditions do change or evolve sometimes and as such it is important that you follow up with your Primary Doctor to be re checked, 3-5 days is a general good time frame for follow up. You are always welcome to return to the ED for re assessment if your symptoms are worsening or you have new concerns Print Language: Barbadian Coding Level of Care Code ED Sleeve Turner for Donna Davis
[2025-05-13 13:12] LABS: Glucose Urine UA Negative (Normal); Nitrate Urine Negative (Negative); Specific Gravity, Urine 1.020 (1.005-1.030)
== END 2025-05-13 14:54 | disposition home or self-care (01) ==
PROVIDERS: Emergency Provider Emergency Medicine
DX: N50.812 Left testicular pain (principal); F17.210 Nicotine dependence, cigarettes, uncomplicated
CPT/HCPCS: 76870; 81001; 99284